=== PATIENT | female | born 1950 ===

== ENCOUNTER 2016-09-23 06:35 | Inpatient (IN) | payer MEDICARE ==
[2016-09-23 06:52] VITALS: BMI 31.5
[2016-09-23] MEDS ORDERED: Absorbable Gelatin Sponge Size 12-7 ONE (07:23)
[2016-09-23] MEDS ORDERED: Bacitracin Ointment 30 GM TUBE ONE (07:23)
[2016-09-23] MEDS ORDERED: Thrombin Topical 5,000 IU Spray Kit ONE (07:23)
[2016-09-23] MEDS ORDERED: Bupivacaine HCl 0.25% PF (30 ml) Inj ONE (07:23)
[2016-09-23] MEDS ORDERED: APROTININ/FIBRINOGEN(TISSEEL) ONE (07:23)
[2016-09-23] MEDS ORDERED: Propofol 10 mg/ml Inj (20 ML) ONE (07:29)
[2016-09-23] MEDS ORDERED: Midazolam 2 MG/2 ML VIAL ONE (07:29)
[2016-09-23] MEDS ORDERED: Rocuronium 10 mg/ml (5 ml) ONE (07:30)
[2016-09-23] MEDS ORDERED: Lidocaine 4% (Laryng-O-Jet) Kit MM ONE (07:30)
--- NOTE | 2016-09-23 07:49 | CP.PCM.CON ---
<Mackenzie Cano - Last Filed: 09/25/16 11:13> History of Present Illness - History of Present Illness History of Present Illness: 66 yo right hand dominant female presents with long standing hx of neckpain radiating to right shoulder,weakness and intermittant paresthesias to right hand with weakness,right leg pain and weakness,drops objects,pt had right L4-5 hemilaminotomy 4 mos ago for lumbar spondylosis with temporary relief with RLE symptoms,gait unsteady at times,no relief with conservative management,outpt imaging showing cervical spondylosis with severe canal stenosis greater at C6-7, referred to neurosurgery for further eval,denies trauma,fall,bowel or bladder incontinance. Review of Systems - Review of Systems Systems not reviewed;Unavailable: Acuity of Condition - Cardiovascular Additional comments: Hx Htn,HLD,stress test 09/10/16 normal,denies WI,angina - Gastrointestinal Additional comments: Hx Gerd - Genitourinary Additional comments: stress incontinance - Musculoskeletal Musculoskeletal: Muscle Weakness, Neck Pain, Radiating Pain into Limb, Tingling - Integumentary Additional comments: healed surgical scars - Neurological Neurological: As Per HPI - Endocrine Additional Comments: Hx Hypothyroidism - Hematologic/Lymphatic Additional comments: daily ASA 81 mg,Ibuprophen prn last used 1 day prior to surgery Past Patient History - Infectious Disease Hx of Infectious Diseases: None - Tetanus Immunizations Tetanus Immunization: Unknown - Past Medical History & Family History Past Medical History?: Yes - Past Social History Smoking Status: Current Some Days Smoker Chewing Tobacco Use: No Cigar Use: No Occupation: Homemaker Alcohol: Occasional Drugs: Denies Home Situation {Lives}: With Family Domestic Violence: Negative - CARDIAC Hx Hypercholesterolemia: Yes Hx Hypertension: Yes - PULMONARY Hx Respiratory Disorders: No - NEUROLOGICAL Hx Neurological Disorder: Yes Hx Dizziness: Yes Hx Vertigo: Yes - HEENT Hx HEENT Problems: No - RENAL Hx Chronic Kidney Disease: No - ENDOCRINE/METABOLIC Hx Endocrine Disorders: Yes Hx Diabetes Mellitus Type 1: Yes Hx Hypothyroidism: Yes - HEMATOLOGICAL/ONCOLOGICAL Hx Blood Disorders: No Hx Anemia: No Hx Blood Transfusions: No - INTEGUMENTARY Hx Dermatological Problems: No - MUSCULOSKELETAL/RHEUMATOLOGICAL Hx Musculoskeletal Disorders: Yes Hx Arthritis: Yes Hx Falls: Yes Other/Comment: NECK PAIN - GASTROINTESTINAL Hx Gastrointestinal Disorders: No Other/Comment: GASTRIC REFLUX - GENITOURINARY/GYNECOLOGICAL Hx Genitourinary Disorders: No - PSYCHIATRIC Hx Emotional Abuse: No Hx Physical Abuse: No - SURGICAL HISTORY Hx Surgeries: Yes Other/Comment: BACK SURGERY-2016;C-SECTIONX3; ORAL SURGERY-LEFT FACE SURGERY - ANESTHESIA Hx Anesthesia: Yes Hx Anesthesia Reactions: Yes (FEELS VERY SICK) Hx Malignant Hyperthermia: No Has any member of the family had a problem w/ anesthesia?: No Meds Allergies/Adverse Reactions: Allergies Allergy/AdvReac Type Severity Reaction Status Date / Time codeine Allergy SWELLING Verified 09/23/16 07:46 morphine Allergy SWELLING Verified 09/23/16 07:46 tramadol Allergy SWELLING Verified 09/23/16 06:53 Physical Exam - Constitutional Appears: Well, Non-toxic, No Acute Distress - Head Exam Head Exam: ATRAUMATIC, NORMAL INSPECTION, NORMOCEPHALIC - Eye Exam Eye Exam: EOMI, Normal appearance, PERRL Pupil Exam: NORMAL ACCOMODATION - ENT Exam ENT Exam: Mucous Membranes Moist - Neck Exam Neck exam: Positive for: Tenderness - Respiratory Exam Respiratory Exam: Clear to Auscultation Bilateral, NORMAL BREATHING PATTERN - Cardiovascular Exam Cardiovascular Exam: REGULAR RHYTHM, +S1, +S2 - GI/Abdominal Exam GI & Abdominal Exam: Normal Bowel Sounds, Soft - Rectal Exam Rectal Exam: Deferred - Extremities Exam Extremities exam: Positive for: normal capillary refill, normal inspection, pedal pulses present - Back Exam Back exam: vertebral tenderness - Neurological Exam Neurological exam: Alert, Oriented x3 Additional comments: ISAACS x 4 antigravity with right bicep/tricep and wrist extensor weakness 4/5, decreased sensation right hand,neg brito's - Psychiatric Exam Psychiatric exam: Normal Affect, Normal Mood - Skin Skin Exam: Dry, Intact Additional comments: healed surgical scar's Results - Vital Signs Recent Vital Signs: Last Vital Signs Temp 98.8 F 09/23/16 07:39 Pulse 68 09/23/16 07:39 Resp 18 09/23/16 07:39 BP 135/82 09/23/16 07:39 Pulse Ox 97 09/23/16 07:39 - Labs Result Diagrams: 09/25/16 08:00 09/25/16 08:00 Labs: Laboratory Results - last 24 hr 09/23/16 09/23/16 07:00 07:15 POC Glucose (mg/dL) 109 BBK History Checked No verified bt Assessment & Plan - Assessment and Plan (Free Text) Assessment: 66 yo right hand dominant female with Cervical spondylosis and myelopathy C6-7 Plan: here today for proposed cervical decompression C6-7,risks and benefits of surgery d/w pt and family expressed understanding and wishes to proceed. <Rohith Guadarrama P - Last Filed: 09/25/16 12:05> Meds - Medications Medications: Current Medications Acetaminophen (Tylenol 325mg Tab) 650 mg PO Q6 PRN PRN Reason: Pain, moderate (4-7) Last Admin: 09/24/16 22:13 Dose: 650 mg Amlodipine Besylate (Norvasc) 5 mg PO DAILY [facility] Last Admin: 09/25/16 09:03 Dose: 5 mg Aspirin (Aspirin Chewable) 81 mg PO DAILY [facility] Last Admin: 09/25/16 08:50 Dose: 81 mg Cyclobenzaprine HCl (Flexeril) 5 mg PO TID PRN PRN Reason: Muscle spasm Last Admin: 09/25/16 09:03 Dose: 5 mg Diphenhydramine HCl (Benadryl) 50 mg IVP Q6 PRN PRN Reason: Rash Enalapril Maleate (Vasotec) 20 mg PO DAILY [facility] Last Admin: 09/25/16 08:49 Dose: 20 mg Enoxaparin Sodium (Lovenox) 40 mg SC DAILY [facility] PRN Reason: Protocol Last Admin: 09/25/16 08:49 Dose: 40 mg Furosemide (Lasix) 20 mg PO DAILY [facility] Last Admin: 09/25/16 09:02 Dose: 20 mg Levothyroxine Sodium (Synthroid) 25 mcg PO DAILY@0630 [facility] Last Admin: 09/25/16 06:53 Dose: 25 mcg Metformin HCl (Glucophage) 750 mg PO BRK [facility] Last Admin: 09/25/16 09:07 Dose: 750 mg Oxycodone/Acetaminophen (Percocet 5/325 Mg Tab) 2 tab PO Q4 PRN PRN Reason: Pain, moderate (4-7) Stop: 09/26/16 11:01 Pantoprazole Sodium (Protonix Ec Tab) 40 mg PO DAILY [facility] Last Admin: 09/25/16 09:02 Dose: 40 mg Results - Vital Signs Recent Vital Signs: Last Vital Signs Temp 98.4 F 09/25/16 08:18 Pulse 75 09/25/16 09:03 Resp 20 09/25/16 08:18 BP 107/70 09/25/16 09:03 Pulse Ox 100 09/25/16 08:18 - Labs Result Diagrams: 09/25/16 08:00 09/25/16 08:00 Labs: Laboratory Results - last 24 hr 09/25/16 09/25/16 09/25/16 05:52 08:00 08:00 WBC 12.5 H RBC 4.24 Hgb 12.1 Hct 37.4 MCV 88.1 MCH 28.6 MCHC 32.4 L RDW 13.9 Plt Count 264 Sodium 140 Potassium 3.7 Chloride 103 Carbon Dioxide 27 Anion Gap 14 BUN 11 Creatinine 0.7 Est GFR ( Amer) > 60 Est GFR (Non-Af Amer) > 60 POC Glucose (mg/dL) 95 Random Glucose 101 Calcium 8.7 09/25/16 10:59 WBC RBC Hgb Hct MCV MCH MCHC RDW Plt Count Sodium Potassium Chloride Carbon Dioxide Anion Gap BUN Creatinine Est GFR ( Amer) Est GFR (Non-Af Amer) POC Glucose (mg/dL) 112 H Random Glucose Calcium Assessment & Plan - Assessment and Plan (Free Text) Plan: addendum C5-C7 Posterior Cervical/ Decompression and Posterolateral Non Instrumented Fusion
[2016-09-23] MEDS ORDERED: Lactated Ringer's 1,000 ML IV ONE ×2 (08:40→08:55)
[2016-09-23] MEDS ORDERED: Sodium Chloride 0.9% 100 ML IV ONE (08:50)
[2016-09-23] MEDS ORDERED: Lidocaine 1% w Epi 1:100,000 Inj INJ ONE (09:10)
[2016-09-23] MEDS ORDERED: HEMOSTATIC MATRIX 10 ML DIS.NEEDLE TOP ONE (09:25)
[2016-09-23] MEDS ORDERED: Neostigmine Methylsulfate 3mg/3ml Syringe IV ONE (09:38)
[2016-09-23] MEDS ORDERED: Dexamethasone 4 mg/1 ml IVP PRN (10:13)
[2016-09-23] MEDS ORDERED: HYDROmorphone 0.5 mg/0.5 ml ISec IVP PRN (10:13)
[2016-09-23] MEDS ORDERED: Oxycodone/Acetaminophen 5/325 mg Tab PO PRN (11:00)
[2016-09-23] MEDS ORDERED: DiphenhydrAMINE 50 mg/ml Inj IVP PRN (11:04)
[2016-09-23] MEDS: Lactated Ringer's 1,000 ML IV SCH (12:55)
--- NOTE | 2016-09-23 14:42 | CP.PCM.HP ---
<Xin Castillo - Last Filed: 09/23/16 18:39> History of Present Illness - History of Present Illness History of Present Illness: 66 y/o F with PMHx that includes HTN, Hypothyroidism, Cervical spondylosis and myelopathy admitted for Cervical laminectomy C6-C7 by Dr. Guadarrama. Patient was seen and examined with attending Present on Admission - Present on Admission Any Indicators Present on Admission: No History of DVT/PE: No History of Uncontrolled Diabetes: No Urinary Catheter: No Decubitus Ulcer Present: No Review of Systems - Review of Systems All systems: reviewed and no additional remarkable complaints except (as per HPI ) Past Patient History - Infectious Disease Hx of Infectious Diseases: None - Past Medical History & Family History Past Medical History?: Yes - Past Social History Smoking Status: Current Some Days Smoker - CARDIAC Hx Hypercholesterolemia: Yes Hx Hypertension: Yes - PULMONARY Hx Respiratory Disorders: No - NEUROLOGICAL Hx Neurological Disorder: Yes Hx Dizziness: Yes Hx Vertigo: Yes - HEENT Hx HEENT Problems: No - RENAL Hx Chronic Kidney Disease: No - ENDOCRINE/METABOLIC Hx Endocrine Disorders: Yes Hx Diabetes Mellitus Type 1: Yes Hx Hypothyroidism: Yes - HEMATOLOGICAL/ONCOLOGICAL Hx Blood Disorders: No Hx Anemia: No Hx Blood Transfusions: No - INTEGUMENTARY Hx Dermatological Problems: No - MUSCULOSKELETAL/RHEUMATOLOGICAL Hx Musculoskeletal Disorders: Yes Hx Arthritis: Yes Hx Falls: Yes Other/Comment: NECK PAIN - GASTROINTESTINAL Hx Gastrointestinal Disorders: No Other/Comment: GASTRIC REFLUX - GENITOURINARY/GYNECOLOGICAL Hx Genitourinary Disorders: No - PSYCHIATRIC Hx Emotional Abuse: No Hx Physical Abuse: No - SURGICAL HISTORY Hx Surgeries: Yes Other/Comment: BACK SURGERY-2016;C-SECTIONX3; ORAL SURGERY-LEFT FACE SURGERY - ANESTHESIA Hx Anesthesia: Yes Hx Anesthesia Reactions: Yes (FEELS VERY SICK) Hx Malignant Hyperthermia: No Has any member of the family had a problem w/ anesthesia?: No Meds Allergies/Adverse Reactions: Allergies Allergy/AdvReac Type Severity Reaction Status Date / Time codeine Allergy SWELLING Verified 09/23/16 07:46 morphine Allergy SWELLING Verified 09/23/16 07:46 tramadol Allergy SWELLING Verified 09/23/16 06:53 Physical Exam - Constitutional Appears: No Acute Distress - ENT Exam ENT Exam: Mucous Membranes Moist - Respiratory Exam Respiratory Exam: Clear to Auscultation Bilateral, NORMAL BREATHING PATTERN - Cardiovascular Exam Cardiovascular Exam: REGULAR RHYTHM, +S1, +S2 - GI/Abdominal Exam GI & Abdominal Exam: Normal Bowel Sounds, Soft. absent: Distended, Guarding, Rigid, Tenderness - Extremities Exam Extremities exam: Positive for: normal inspection. Negative for: calf tenderness, pedal edema - Neurological Exam Neurological exam: Alert, Oriented x3 - Skin Skin Exam: Dry, Intact, Normal Color Results - Vital Signs Recent Vital Signs: Last Vital Signs Temp 98.7 F 09/23/16 13:06 Pulse 84 09/23/16 14:18 Resp 18 09/23/16 13:06 BP 104/66 09/23/16 13:06 Pulse Ox 97 09/23/16 13:06 - Labs Labs: Laboratory Results - last 24 hr 09/23/16 09/23/16 09/23/16 07:00 07:15 07:37 POC Glucose (mg/dL) 109 Blood Type O POSITIVE Blood Type Confirm O POSITIVE Antibody Screen Negative BBK History Checked No verified bt 09/23/16 09/23/16 10:29 13:08 POC Glucose (mg/dL) 140 H 115 H Blood Type Blood Type Confirm Antibody Screen BBK History Checked Assessment & Plan - Assessment and Plan (Free Text) Assessment: 66 y/o F with PMHx of Cervical spondylosis and myelopathy, s/p Cervical Laminectomy C6-C7 on POD#0 Plan: S/P Cervical Laminectomy C6-C7 on POD#0 -admit to Telemetry -c/w pain control -f/u CBC, BMP in AM -PT eval -F/U Dr. Guadarrama recommendation HTN -re-assume home meds -c/w BP monitoring Hypothyroidism -re-assume Levothyroxine DVT prophylaxis SCDs for now consider Lovenox SC tomorrow - Date & Time Date: 09/23/16 Time: 12:15 <Rahat Randhawa L - Last Filed: 09/27/16 10:54> Results - Vital Signs Recent Vital Signs: Last Vital Signs Temp 98.3 F 09/27/16 07:28 Pulse 76 09/27/16 07:28 Resp 20 09/27/16 07:28 BP 94/60 L 09/27/16 09:34 Pulse Ox 96 09/27/16 07:28 - Labs Result Diagrams: 09/26/16 06:30 09/25/16 08:00 Labs: Laboratory Results - last 24 hr 09/26/16 09/26/16 09/26/16 10:40 15:54 21:51 POC Glucose (mg/dL) 151 H 98 93 09/27/16 05:58 POC Glucose (mg/dL) 97 Assessment & Plan (1) S/P cervical discectomy Status: Acute (2) Cervical radiculopathy Status: Acute (3) Hypertension Status: Acute - Assessment and Plan (Free Text) Plan: I was present during evaluation and discussed with Dr Castillo re plans of care Rahat Randhawa M.D.
--- NOTE | 2016-09-23 17:22 | RAD ---
PROCEDURE: Intraoperative Fluoroscopy. HISTORY: CERVICAL LAMINECTOMY FINDINGS: Fluoroscopic assistance was provided for cervical laminectomy. Total fluoroscopic time (continuous mode) utilized during the procedure: 7.6 seconds. Please refer to the operative report from
[2016-09-24] MEDS: Lactated Ringer's 1,000 ML IV SCH (01:11)
--- NOTE | 2016-09-24 01:36 | OP ---
PROCEDURE DATE: 09/23/2016 PREOPERATIVE DIAGNOSIS: Cervical spondylosis with myelopathy. POSTOPERATIVE DIAGNOSIS: Cervical spondylosis with myelopathy. PROCEDURE: C5-C7 cervical laminectomy, C5-C7 posterolateral fusion. treatment plant mechanic has been used. Fluoroscopy has been used. Microscope has been used. SURGEON: Dr. Guadarrama. [employer] SUPERVISOR: Mackenzie Cano PA-C. Mackenzie Cano is a physician supply assistant who helped me perform the surgery. DESCRIPTION OF PROCEDURE: The patient was brought to the operating room, intubated general endotracheal anesthesia. Head was placed in the 3-pin Randall janitor head and she was placed in a prone position on a Dominguez frame. treatment plant mechanic had been clamped to the bed. Back of the cervical area was thoroughly prepped and draped in same sterile manner. After markings for skin incisions for cervical laminectomy. After prepping and draping the area, skin had been incised. Bleeding skins had been controlled with bipolar operations research scientist. After using the Bovie operations research scientist, the paraspinal muscles had been detached, attachments of spinous process, lamina of C5-C7. Deep retractors had been applied. Identification of the levels had been done with the help of fluoroscopy. Under microscopic examination, the spinous process of C5, C6, C7 had been removed. By using a high speed drill, the lamina had been drilled to actual thickness. By using a fine Kerrison punch, lamina, medial part of the facets and ligamentum flavum had been removed. Decompression had been achieved. Lateral aspect of the facet joint, transverse process had been decorticated, demineralized bone placed in the area achieving a posterolateral fusion at C5-C7. After that, hemostasis was best achieved. Jt drain was placed on the wound and brought out through a separate stab neck skin incision. Muscles and fascia were closed with 1 Vicryl, subcutaneous with 3 Vicryl. Skin had been closed with intradermal 3 Vicryl stitches. The patient tolerated the procedure and after procedure mobilized to the recovery room in stabilized condition. Rohith Guadarrama MD
[2016-09-24] MEDS: Levothyroxine 25 MCG TAB PO SCH (06:25)
[2016-09-24 07:28] LABS: BLOOD UREA NITROGEN 11 mg/dl (7-17); CALCIUM 8.7 mg/dL (8.4-10.2); CARBON DIOXIDE 24 mmol/L (22-30); CHLORIDE 106 mmol/L (98-107); GFR AFRICAN-AMERICAN > 60; GLUCOSE,RANDOM 112 mg/dL (65-105); POTASSIUM 4.1 MMOL/L (3.6-5.0); SODIUM 137 mmol/l (132-148)
[2016-09-24 07:29] LABS: BASO # 0.1 K/uL (0.0-0.2); BASO % 0.4 % (0.0-2.0); EOS # 0.1 K/uL (0.0-0.7); EOS % 0.6 % (0.0-4.0); HEMATOCRIT 36.7 % (34.0-47.0); LYMPH # 2.4 K/uL (1.0-4.3); MEAN CORPUSCULAR HEMOGLOBIN 28.5 pg (27.0-31.0); MEAN PLATELET VOLUME 8.4 fl (7.2-11.7); MONO % 7.7 % (0.0-10.0); NEUT # 9.2 K/uL (1.8-7.0); NEUT % 72.3 % (50.0-75.0); RED CELL DISTRIBUTION WIDTH 13.9 % (11.5-14.5); WHITE BLOOD COUNT 12.7 K/uL (4.8-10.8)
[2016-09-24] MEDS: Enoxaparin 40 mg Syringe SC SCH (09:11)
[2016-09-24] MEDS: Pantoprazole 40 mg EC Tab PO SCH (09:13)
--- NOTE | 2016-09-24 15:43 | CP.PCM.PN ---
<Xin Castillo - Last Filed: 09/24/16 15:39> Subjective - Date & Time of Evaluation Date of Evaluation: 09/24/16 Time of Evaluation: 09:10 - Subjective Subjective: patient seen and examined with attending pt still reporting pain, but controlled with pain medications Denies Cp, SOB, N/V, abdominal pain, or urinary symptoms passing gas, but has not yet had a BM Objective - Vital Signs/Intake and Output Vital Signs (last 24 hours): Temp Pulse Resp BP Pulse Ox 98.8 F 76 20 111/70 98 09/24/16 13:58 09/24/16 13:58 09/24/16 13:58 09/24/16 13:58 09/24/16 13:58 Intake and Output: 09/24/16 09/24/16 06:59 18:59 Intake Total 1750 Output Total 1270 Balance 480 - Medications Medications: Current Medications Acetaminophen (Tylenol 325mg Tab) 650 mg PO Q6 PRN PRN Reason: Pain, moderate (4-7) Last Admin: 09/24/16 15:00 Dose: 650 mg Amlodipine Besylate (Norvasc) 5 mg PO DAILY [facility] Last Admin: 09/24/16 09:12 Dose: 5 mg Aspirin (Aspirin Chewable) 81 mg PO DAILY [facility] Last Admin: 09/24/16 09:12 Dose: 81 mg Cyclobenzaprine HCl (Flexeril) 5 mg PO TID PRN PRN Reason: Muscle spasm Diphenhydramine HCl (Benadryl) 50 mg IVP Q6 PRN PRN Reason: Rash Enalapril Maleate (Vasotec) 20 mg PO DAILY [facility] Last Admin: 09/24/16 09:12 Dose: 20 mg Enoxaparin Sodium (Lovenox) 40 mg SC DAILY [facility] PRN Reason: Protocol Last Admin: 09/24/16 09:11 Dose: 40 mg Furosemide (Lasix) 20 mg PO DAILY [facility] Last Admin: 09/24/16 09:12 Dose: 20 mg Levothyroxine Sodium (Synthroid) 25 mcg PO DAILY@0630 [facility] Last Admin: 09/24/16 06:25 Dose: 25 mcg Metformin HCl (Glucophage) 750 mg PO BRK [facility] Last Admin: 09/24/16 09:11 Dose: 750 mg Oxycodone/Acetaminophen (Percocet 5/325 Mg Tab) 2 tab PO Q4 PRN PRN Reason: Pain, moderate (4-7) Stop: 09/26/16 11:01 Pantoprazole Sodium (Protonix Ec Tab) 40 mg PO DAILY [facility] Last Admin: 09/24/16 09:13 Dose: 40 mg - Labs Labs: 09/24/16 07:03 09/24/16 07:03 - Additional Findings Additional findings: Constitutional Appears: No Acute Distress - ENT Exam ENT Exam: Mucous Membranes Moist - Respiratory Exam Respiratory Exam: Clear to Auscultation Bilateral, NORMAL BREATHING PATTERN - Cardiovascular Exam Cardiovascular Exam: REGULAR RHYTHM, +S1, +S2 - GI/Abdominal Exam GI & Abdominal Exam: Normal Bowel Sounds, Soft. absent: Distended, Guarding, Rigid, Tenderness - Extremities Exam Extremities exam: Positive for: normal inspection, right calf tenderness, no left calf tenderness . Negative for: pedal edema - Neurological Exam Neurological exam: Alert, Oriented x3 - Skin Skin Exam: Dry, Intact, Normal Color Assessment and Plan - Assessment and Plan (Free Text) Assessment: 66 y/o F with PMHx of Cervical spondylosis and myelopathy, s/p Cervical Laminectomy C6-C7 on POD#1 Plan: S/P Cervical Laminectomy C6-C7 on POD#1 -transfer to [facility] -Afebrile -CBC showed mild leucocytosis, could be 2/2 postt-operative inflamm reaction -c/w pain control -f/u VS -f/u dupplex venous US of LE -PT eval /Tx -F/U Dr. Guadarrama recommendation HTN -re-assume home meds -c/w BP monitoring Hypothyroidism -re-assume Levothyroxine DVT prophylaxis SCDs start Lovenox SC today <Rahat Randhawa - Last Filed: 09/27/16 10:55> Objective - Vital Signs/Intake and Output Vital Signs (last 24 hours): Temp Pulse Resp BP Pulse Ox 98.3 F 76 20 94/60 L 96 09/27/16 07:28 09/27/16 07:28 09/27/16 07:28 09/27/16 09:34 09/27/16 07:28 - Medications Medications: Current Medications Acetaminophen (Tylenol 325mg Tab) 650 mg PO Q6 PRN PRN Reason: Pain, moderate (4-7) Last Admin: 09/24/16 22:13 Dose: 650 mg Amlodipine Besylate (Norvasc) 5 mg PO DAILY [facility] Last Admin: 09/26/16 09:00 Dose: 5 mg Aspirin (Aspirin Chewable) 81 mg PO DAILY [facility] Last Admin: 09/27/16 09:32 Dose: 81 mg Cyclobenzaprine HCl (Flexeril) 5 mg PO TID PRN PRN Reason: Muscle spasm Last Admin: 09/27/16 09:34 Dose: 5 mg Diphenhydramine HCl (Benadryl) 50 mg IVP Q6 PRN PRN Reason: Rash Enalapril Maleate (Vasotec) 20 mg PO DAILY [facility] Last Admin: 09/26/16 08:40 Dose: Not Given Enoxaparin Sodium (Lovenox) 40 mg SC DAILY [facility] PRN Reason: Protocol Last Admin: 09/27/16 09:36 Dose: 40 mg Furosemide (Lasix) 20 mg PO DAILY [facility] Last Admin: 09/27/16 09:34 Dose: 20 mg Lactulose (Enulose) 20 gm PO DAILY PRN PRN Reason: Constipation Last Admin: 09/27/16 09:39 Dose: 20 gm Levothyroxine Sodium (Synthroid) 25 mcg PO DAILY@0630 [facility] Last Admin: 09/27/16 07:46 Dose: 25 mcg Metformin HCl (Glucophage) 750 mg PO BRK [facility] Last Admin: 09/27/16 09:34 Dose: 750 mg Pantoprazole Sodium (Protonix Ec Tab) 40 mg PO DAILY [facility] Last Admin: 09/27/16 09:36 Dose: 40 mg - Labs Labs: 09/26/16 06:30 09/25/16 08:00 Assessment and Plan (1) S/P cervical discectomy Status: Acute (2) Cervical radiculopathy Status: Acute (3) Hypertension Status: Acute - Assessment and Plan (Free Text) Plan: I was present during evaluation and discussed with Dr Castillo re plans of care and treatment. Rahat Randhawa M.D.
--- NOTE | 2016-09-24 18:57 | US ---
PROCEDURE: AllBilateral lower extremity venous duplex Doppler. HISTORY: r/o DVT, s/p surgery COMPARISON: None available. TECHNIQUE: Bilateral common femoral, superficial femoral, popliteal and posterior tibial veins were evaluated. Flow was assessed with color Doppler, compressibility, assessment of phasic flow and augmentation response. FINDINGS: COMMON FEMORAL VEIN: Right CFV: Unremarkable. Left CFV: Unremarkable. SUPERFICIAL FEMORAL VEIN: Right SFV: Unremarkable. Left SFV: Unremarkable. POPLITEAL VEIN: Right Popliteal: Unremarkable. Left Popliteal: Unremarkable. POSTERIOR TIBIAL VEIN: Right PTV: Unremarkable. Left PTV: Unremarkable. OTHER FINDINGS: None. IMPRESSION: No evidence of deep venous thrombosis.
[2016-09-25] MEDS: Levothyroxine 25 MCG TAB PO SCH (06:53)
[2016-09-25 08:45] LABS: HEMATOCRIT 37.4 % (34.0-47.0); MEAN CELL VOLUME 88.1 fl (81.0-99.0); MEAN CORPUSCULAR HEMOGLOBIN 28.6 pg (27.0-31.0); MEAN CORPUSCULAR HGB CONC 32.4 g/dL (33.0-37.0); RED CELL DISTRIBUTION WIDTH 13.9 % (11.5-14.5); WHITE BLOOD COUNT 12.5 K/uL (4.8-10.8)
[2016-09-25] MEDS: Enoxaparin 40 mg Syringe SC SCH (08:49)
[2016-09-25] MEDS: Pantoprazole 40 mg EC Tab PO SCH (09:02)
[2016-09-25 09:06] LABS: BLOOD UREA NITROGEN 11 mg/dl (7-17); CALCIUM 8.7 mg/dL (8.4-10.2); CARBON DIOXIDE 27 mmol/L (22-30); CHLORIDE 103 mmol/L (98-107); GFR AFRICAN-AMERICAN > 60; GLUCOSE,RANDOM 101 mg/dL (65-105); POTASSIUM 3.7 MMOL/L (3.6-5.0); SODIUM 140 mmol/l (132-148)
--- NOTE | 2016-09-25 10:44 | CP.PCM.PN ---
Subjective - Date & Time of Evaluation Date of Evaluation: 09/25/16 Time of Evaluation: 10:44 - Subjective Subjective: Patient feels a lot better today Has no chest pain or SOB. Drain was taken out, Has some pain in the periop site Has no fever. Objective - Vital Signs/Intake and Output Vital Signs (last 24 hours): Temp Pulse Resp BP Pulse Ox 98.4 F 75 20 107/70 100 09/25/16 08:18 09/25/16 09:03 09/25/16 08:18 09/25/16 09:03 09/25/16 08:18 Intake and Output: 09/25/16 09/25/16 06:59 18:59 Output Total 10 Balance -10 - Medications Medications: Current Medications Acetaminophen (Tylenol 325mg Tab) 650 mg PO Q6 PRN PRN Reason: Pain, moderate (4-7) Last Admin: 09/24/16 22:13 Dose: 650 mg Amlodipine Besylate (Norvasc) 5 mg PO DAILY [facility] Last Admin: 09/25/16 09:03 Dose: 5 mg Aspirin (Aspirin Chewable) 81 mg PO DAILY [facility] Last Admin: 09/25/16 08:50 Dose: 81 mg Cyclobenzaprine HCl (Flexeril) 5 mg PO TID PRN PRN Reason: Muscle spasm Last Admin: 09/25/16 09:03 Dose: 5 mg Diphenhydramine HCl (Benadryl) 50 mg IVP Q6 PRN PRN Reason: Rash Enalapril Maleate (Vasotec) 20 mg PO DAILY [facility] Last Admin: 09/25/16 08:49 Dose: 20 mg Enoxaparin Sodium (Lovenox) 40 mg SC DAILY [facility] PRN Reason: Protocol Last Admin: 09/25/16 08:49 Dose: 40 mg Furosemide (Lasix) 20 mg PO DAILY [facility] Last Admin: 09/25/16 09:02 Dose: 20 mg Levothyroxine Sodium (Synthroid) 25 mcg PO DAILY@0630 [facility] Last Admin: 09/25/16 06:53 Dose: 25 mcg Metformin HCl (Glucophage) 750 mg PO BRK [facility] Last Admin: 09/25/16 09:07 Dose: 750 mg Oxycodone/Acetaminophen (Percocet 5/325 Mg Tab) 2 tab PO Q4 PRN PRN Reason: Pain, moderate (4-7) Stop: 09/26/16 11:01 Pantoprazole Sodium (Protonix Ec Tab) 40 mg PO DAILY [facility] Last Admin: 09/25/16 09:02 Dose: 40 mg - Labs Labs: 09/25/16 08:00 09/25/16 08:00 - Head Exam Head Exam: NORMAL INSPECTION - Eye Exam Eye Exam: Normal appearance - ENT Exam ENT Exam: Mucous Membranes Moist - Respiratory Exam Respiratory Exam: Clear to Ausculation Bilateral - Cardiovascular Exam Cardiovascular Exam: REGULAR RHYTHM - GI/Abdominal Exam GI & Abdominal Exam: Normal Bowel Sounds - Neurological Exam Neurological Exam: Awake, Oriented x3 Assessment and Plan (1) Cervical radiculopathy Status: Acute (2) Hypertension Status: Acute (3) S/P cervical discectomy Status: Acute (4) Diabetes mellitus type 2 in nonobese Status: Acute - Assessment and Plan (Free Text) Plan: cont meds Cont tx cont PT pain meds
[2016-09-26] MEDS: Levothyroxine 25 MCG TAB PO SCH (08:04)
[2016-09-26 08:39] LABS: MEAN CELL VOLUME 88.2 fl (81.0-99.0); MEAN CORPUSCULAR HEMOGLOBIN 28.8 pg (27.0-31.0); MEAN CORPUSCULAR HGB CONC 32.7 g/dL (33.0-37.0); RED CELL DISTRIBUTION WIDTH 13.2 % (11.5-14.5)
[2016-09-26] MEDS: Enoxaparin 40 mg Syringe SC SCH (08:39)
[2016-09-26] MEDS: Pantoprazole 40 mg EC Tab PO SCH (08:39)
[2016-09-27 00:15] VITALS: O2SAT 96
[2016-09-27 07:28] VITALS: RESP 20; TEMP 98.3
[2016-09-27] MEDS: Levothyroxine 25 MCG TAB PO SCH (07:46)
[2016-09-27] MEDS: Pantoprazole 40 mg EC Tab PO SCH (09:36)
[2016-09-27] MEDS: Enoxaparin 40 mg Syringe SC SCH (09:36)
--- NOTE | 2016-09-27 10:50 | CP.PCM.PN ---
Subjective - Date & Time of Evaluation Date of Evaluation: 09/26/16 Time of Evaluation: 09:30 - Subjective Subjective: patient is doing better although still has a lot of pain. Has no chest pain or SOB Has some constipation Objective - Vital Signs/Intake and Output Vital Signs (last 24 hours): Temp Pulse Resp BP Pulse Ox 98.3 F 76 20 94/60 L 96 09/27/16 07:28 09/27/16 07:28 09/27/16 07:28 09/27/16 09:34 09/27/16 07:28 - Medications Medications: Current Medications Acetaminophen (Tylenol 325mg Tab) 650 mg PO Q6 PRN PRN Reason: Pain, moderate (4-7) Last Admin: 09/24/16 22:13 Dose: 650 mg Amlodipine Besylate (Norvasc) 5 mg PO DAILY [facility] Last Admin: 09/26/16 09:00 Dose: 5 mg Aspirin (Aspirin Chewable) 81 mg PO DAILY [facility] Last Admin: 09/27/16 09:32 Dose: 81 mg Cyclobenzaprine HCl (Flexeril) 5 mg PO TID PRN PRN Reason: Muscle spasm Last Admin: 09/27/16 09:34 Dose: 5 mg Diphenhydramine HCl (Benadryl) 50 mg IVP Q6 PRN PRN Reason: Rash Enalapril Maleate (Vasotec) 20 mg PO DAILY [facility] Last Admin: 09/26/16 08:40 Dose: Not Given Enoxaparin Sodium (Lovenox) 40 mg SC DAILY [facility] PRN Reason: Protocol Last Admin: 09/27/16 09:36 Dose: 40 mg Furosemide (Lasix) 20 mg PO DAILY [facility] Last Admin: 09/27/16 09:34 Dose: 20 mg Lactulose (Enulose) 20 gm PO DAILY PRN PRN Reason: Constipation Last Admin: 09/27/16 09:39 Dose: 20 gm Levothyroxine Sodium (Synthroid) 25 mcg PO DAILY@0630 [facility] Last Admin: 09/27/16 07:46 Dose: 25 mcg Metformin HCl (Glucophage) 750 mg PO BRK [facility] Last Admin: 09/27/16 09:34 Dose: 750 mg Pantoprazole Sodium (Protonix Ec Tab) 40 mg PO DAILY [facility] Last Admin: 09/27/16 09:36 Dose: 40 mg - Labs Labs: 09/26/16 06:30 09/25/16 08:00 - Head Exam Head Exam: NORMAL INSPECTION - Eye Exam Eye Exam: Normal appearance - Respiratory Exam Respiratory Exam: Clear to Ausculation Bilateral - Cardiovascular Exam Cardiovascular Exam: REGULAR RHYTHM - GI/Abdominal Exam GI & Abdominal Exam: Normal Bowel Sounds - Neurological Exam Neurological Exam: Awake, Oriented x3 Assessment and Plan (1) S/P cervical discectomy Status: Acute (2) Cervical radiculopathy Status: Acute (3) Hypertension Status: Acute - Assessment and Plan (Free Text) Plan: cont meds Cont tx Cont PT pain meds.
--- NOTE | 2016-09-27 10:59 | CP.PCM.DIS ---
Provider - Provider Date of Admission: 09/23/16 10:55 Attending physician: Rahat Randhawa MD Primary care physician: Rahat Randhawa MD Time Spent in preparation of Discharge (in minutes): 30 Diagnosis - Discharge Diagnosis (1) Cervical radiculopathy Status: Acute (2) Hypertension Status: Acute (3) S/P cervical discectomy Status: Acute (4) Diabetes mellitus type 2 in nonobese Status: Acute Hospital Course - Lab Results Lab Results: Most Recent Lab Values WBC 13.0 K/uL (4.8-10.8) H 09/26/16 06:30 RBC 3.97 Mil/uL (3.80-5.20) 09/26/16 06:30 Hgb 11.5 g/dL (12.0-16.0) L 09/26/16 06:30 Hct 35.0 % (34.0-47.0) 09/26/16 06:30 MCV 88.2 fl (81.0-99.0) 09/26/16 06:30 MCH 28.8 pg (27.0-31.0) 09/26/16 06:30 MCHC 32.7 g/dL (33.0-37.0) L 09/26/16 06:30 RDW 13.2 % (11.5-14.5) 09/26/16 06:30 Plt Count 260 K/uL (130-400) 09/26/16 06:30 MPV 8.4 fl (7.2-11.7) 09/24/16 07:03 Neut % (Auto) 72.3 % (50.0-75.0) 09/24/16 07:03 Lymph % (Auto) 19.0 % (20.0-40.0) L 09/24/16 07:03 [place] % (Auto) 7.7 % (0.0-10.0) 09/24/16 07:03 Eos % (Auto) 0.6 % (0.0-4.0) 09/24/16 07:03 Baso % (Auto) 0.4 % (0.0-2.0) 09/24/16 07:03 Neut # 9.2 K/uL (1.8-7.0) H 09/24/16 07:03 Lymph # 2.4 K/uL (1.0-4.3) 09/24/16 07:03 [place] # 1.0 K/uL (0.0-0.8) H 09/24/16 07:03 Eos # 0.1 K/uL (0.0-0.7) 09/24/16 07:03 Baso # 0.1 K/uL (0.0-0.2) 09/24/16 07:03 Sodium 140 mmol/l (132-148) 09/25/16 08:00 Potassium 3.7 MMOL/L (3.6-5.0) 09/25/16 08:00 Chloride 103 mmol/L (98-107) 09/25/16 08:00 Carbon Dioxide 27 mmol/L (22-30) 09/25/16 08:00 Anion Gap 14 (10-20) 09/25/16 08:00 BUN 11 mg/dl (7-17) 09/25/16 08:00 Creatinine 0.7 mg/dL (0.7-1.2) 09/25/16 08:00 Est GFR ( Amer) > 60 09/25/16 08:00 Est GFR (Non-Af Amer) > 60 09/25/16 08:00 POC Glucose (mg/dL) 78 mg/dL (65-110) 09/27/16 10:40 Random Glucose 101 mg/dL (65-105) 09/25/16 08:00 Calcium 8.7 mg/dL (8.4-10.2) 09/25/16 08:00 Blood Type O POSITIVE 09/23/16 07:00 Blood Type Confirm O POSITIVE 09/23/16 07:37 Antibody Screen Negative 09/23/16 07:00 BBK History Checked No verified bt 09/23/16 07:00 - Hospital Course Hospital Course: This is a 66 y/o female wjho had progressive cervical radiculopathy and C6C7 spondylosis was admitttedfor C6C7 decompression. Post op period was unremarkable. Post op period ws unremarkabl She was started on pain meds and stool softener and meds for HTN and DM 2 were maintaine She did very well and discharged to home and discharged to home in stable conditon. Discharge Exam - Head Exam Head Exam: NORMAL INSPECTION - Eye Exam Eye Exam: Normal appearance - Respiratory Exam Respiratory Exam: NORMAL BREATHING PATTERN - Cardiovascular Exam Cardiovascular Exam: REGULAR RHYTHM - GI/Abdominal Exam GI & Abdominal Exam: Normal Bowel Sounds - Neurological Exam Neurological exam: CN II-XII Intact, Oriented x3 - Psychiatric Exam Psychiatric exam: Normal Mood Discharge Plan - Follow Up Plan Condition: GOOD Disposition: HOME/ ROUTINE Additional Instructions: discharge to home pain meds follow up in 1 to 2 weeks Referrals: Rahat Randhawa MD [Primary Care Provider] -
[2016-09-27 12:36] VITALS: BP 114/77; PULSE 84
== END 2016-09-27 14:07 | disposition home or self-care (01) | DRG 473 ==
LOC: H.OPSURG 06:35 → H.TEL 10:55 → H.MEDSURG1 09-24 15:53
PROVIDERS: ADMIT Family Medicine; ATTEND Family Medicine
PROC: 0RG20K1 Fusion of 2 or more Cervical Vertebral Joints with Nonautologous Tissue Substitute, Posterior Approach, Posterior Column, Open Approach (ICD-10-PCS; principal; 2016-09-23 07:45)
DX: M47.12 Other spondylosis with myelopathy, cervical region (principal); I10 Essential (primary) hypertension; E03.9 Hypothyroidism, unspecified; E11.9 Type 2 diabetes mellitus without complications; E78.5 Hyperlipidemia, unspecified; K21.9 Gastro-esophageal reflux disease without esophagitis; K59.00 Constipation, unspecified; M54.12 Radiculopathy, cervical region; N39.3 Stress incontinence (female) (male); Z88.6 Allergy status to analgesic agent; Z88.5 Allergy status to narcotic agent; F17.200 Nicotine dependence, unspecified, uncomplicated

== ENCOUNTER 2016-10-10 21:57 | Inpatient (IN) | payer MEDICARE ==
[2016-10-10 21:57] VITALS: BMI 31.5
--- NOTE | 2016-10-10 22:27 | ED PDOC ---
HPI: Headache Time Seen by Provider: 10/10/16 22:00 Chief Complaint (Nursing): Headache Chief Complaint (Provider): Headache History Per: Patient History/Exam Limitations: no limitations Onset/Duration Of Symptoms: Intermittent Episodes, Other (x1 week) Current Symptoms Are (Timing): Still Present Additional Complaint(s): 66 year old female brought in by EMS and accompanied by daughter presents to ED with complaints of a headache and has a past medical history of HTN, arthritis, and DM. Daughter states that patient has been having intermittent headaches x1 week and experienced one x2.5 hours [employer] FIL[employer] while walking, causing her to lose balance. Daughter notes that patient lost consciousness x1 minute and was very slow to respond to promptings, causing her to call 911. Of note, patient had a laminectomy x2.5 weeks earlier and had been recuperating well but just started physical therapy. Daughter states patient had been taking Duexis for pain. PCP: Dr. Randhawa NIHSS Stroke Scale - Date/Time Evaluation Performed Date Performed: 10/10/16 Time Performed: 10:30 When Was NIHSS Performed: Baseline - How Severe is the Stroke Level of Consciousness: 0=Alert LOC to Questions: 0=Both comments correct LOC to commands: 0=Obeys both correctly Visual: 0=No visual loss Facial: 0=Normal Motor Arm - Left: 0=No drift Motor Arm - Right: 0=No drift Motor Leg - Left: 0=No drift Motor Leg - Right: 0=No drift Limb Ataxia: 0=Absent Sensory: 0=Normal Best Language: 0=No aphasia Dysarthia: 0=Normal articulation Extinction & Inattention (Neglect): 0=Normal, no object Severity Of Stroke: 0 = No Stroke Past Medical History Reviewed: Historical Data, Nursing Documentation, Vital Signs Vital Signs: Last Vital Signs Temp 98.6 F 10/10/16 22:14 Pulse 74 10/10/16 22:14 Resp 16 10/10/16 22:14 BP 154/73 H 10/10/16 22:14 Pulse Ox 98 10/10/16 22:14 - Medical History PMH: Arthritis, Back Problems, HTN, Hypercholesterolemia, Hypothyroidism Denies: Anemia, Chronic Kidney Disease - Surgical History Surgical History: (x3) - Family History Family History: States: Unknown Family Hx - Living Arrangements Living Arrangements: With Family - Social History Current smoker - smoking cessation education provided: No Ex-Smoker (has not smoked in the last 12 months): No Alcohol: None Drugs: Denies - Immunization History Hx Tetanus Toxoid Vaccination: No Hx Influenza Vaccination: Yes (current) Hx Pneumococcal Vaccination: No - Home Medications Home Medications: Ambulatory Orders Medication Instructions Recorded Alendronate [Fosamax] 70 mg PO SAT 06/04/15 Calcium Carbonate/Vitamin D3 1 tab PO DAILY 06/04/15 [Calcium 600-Vit D3 200 Tablet] Ergocalciferol (Vitamin D2) 50,000 unit PO QWK 06/04/15 [Vitamin D2] Ketotifen Fumarate [Itchy Eye] 1 drop EACHEYE BID 06/04/15 Meclizine [Antivert] 12.5 mg PO HS 06/04/15 Multivit,Iron,Min 5/Folic Acid 1 tab PO DAILY 06/04/15 [Strovite Forte Caplet] Omeprazole [Prilosec] 40 mg PO DAILY 06/04/15 Simvastatin [Zocor] 40 mg PO HS 06/04/15 Aspirin [Ecotrin] 81 mg PO DAILY 09/23/16 Acetaminophen [Tylenol 325mg tab] 650 mg PO Q6 PRN tab 09/27/16 Cyclobenzaprine [Flexeril] 5 mg PO TID PRN tab 09/27/16 DiphenhydrAMINE [Benadryl] 50 mg IVP Q6 PRN vial 09/27/16 Enalapril Maleate [Vasotec] 20 mg PO DAILY tab 09/27/16 Furosemide [Lasix] 20 mg PO DAILY tab 09/27/16 Lactulose [Enulose] 20 gm PO DAILY PRN 09/27/16 Levothyroxine [Synthroid] 25 mcg PO DAILY@0630 tab 09/27/16 Naloxegol Oxalate [Movantik] 25 mg PO DAILY #30 tablet 09/27/16 Pantoprazole [Protonix EC Tab] 40 mg PO DAILY ect 09/27/16 amLODIPine [Norvasc] 5 mg PO DAILY tab 09/27/16 metFORMIN [glucOPHAGE] 750 mg PO BRK tab 09/27/16 traMADol [Ultram] 50 mg PO BID #60 tab 09/27/16 Enalapril Maleate [Vasotec] 20 mg PO DAILY 10/11/16 Ibuprofen/Famotidine [Duexis 1 tab PO TID 10/11/16 800-26.6 mg Tablet] Icosapent Ethyl [Vascepa] 1 gm PO DAILY 10/11/16 Linaclotide [Linzess] 145 mcg PO DAILY 10/11/16 Tramadol HCl [Ultram] 50 mg PO DAILY 10/11/16 - Allergies Allergies/Adverse Reactions: Allergies Allergy/AdvReac Type Severity Reaction Status Date / Time codeine Allergy SWELLING Verified 10/10/16 22:14 morphine Allergy SWELLING Verified 10/10/16 22:14 tramadol Allergy SWELLING Verified 10/10/16 22:14 Review of Systems ROS Statement: Except As Marked, All Systems Reviewed And Found Negative Neurological: Positive for: Headache, Dizziness, Other ((+) LOC) Physical Exam - Reviewed Nursing Documentation Reviewed: Yes Vital Signs Reviewed: Yes - Physical Exam Appears: Positive for: Non-toxic Head Exam: Positive for: ATRAUMATIC, NORMOCEPHALIC Skin: Positive for: Normal Color, Warm, Dry Eye Exam: Positive for: Normal appearance, EOMI, PERRL ENT: Positive for: Normal ENT Inspection Neck: Positive for: Normal (Patient is in a soft neck brace) Cardiovascular/Chest: Positive for: Regular Rate, Rhythm. Negative for: Murmur Respiratory: Positive for: Normal Breath Sounds. Negative for: Respiratory Distress Gastrointestinal/Abdominal: Positive for: Normal Exam, Soft. Negative for: Tenderness Back: Positive for: Normal Inspection Extremity: Positive for: Normal ROM. Negative for: Deformity, Swelling Neurologic/Psych: Positive for: Alert, Oriented. Negative for: Motor/Sensory Deficits (All extremities have full 5/5 strength. Manager Of Training And Development strength bilaterally intact. Responding to commands.) - Laboratory Results Result Diagrams: 10/10/16 22:47 10/10/16 22:47 - ECG O2 Sat by Pulse Oximetry: 98 (RA) Pulse Ox Interpretation: Normal Medical Decision Making Medical Decision Makin Code stroke called upon pt arrival given onset 745 pm tonight and pt episode of transient slurred speech/headache. Initial impression: r/o stroke, rule out intracranial bleeding Initial plan: * T&S * CT HEAD * EKG * Labs * Hemogloin A1C * Lipid * Trop I * PTT/PT * CXR 2224 Accucheck: [address] HEAD FINDINGS: Brain: Ventricles are normal in size and configuration. There is no midline shift. There is mild prominence of sulci and gyri. There are no intra-axial or extra-axial mass lesions or areas of hemorrhage. There are no abnormal fluid collections. Campos-white differentiation is maintained. Ventricles: See above. Bones: Cranial vault is intact. Soft tissues: unremarkable Sinuses: There is no acute sinusitis. Ears and mastoids: Middle ears and mastoids are unremarkable Orbits: Orbital contents are unremarkable. IMPRESSION: No acute intracranial abnormality 00:20: Labs reviewed - WBC 13.3. Call placed to Neurology solution strategist. 01:00: Spoke with Dr. Randhawa. The patient is Dr. Randhawa's private patient and he requested Dr. Rdoriguez, Neurology, to consult. Call placed for Dr. Rodriguez. 02:05: Dr. Rodriguez is out of town states DR Guerra covering. Spoke with neurology solution strategist dr guerra who will consult on the patient. holding ASA for now due to recent surgery and lack of neurological findings at this time. DR rodriguez states will see pt in the am. pt daughter and pt made aware of plan. Scribe Attestation: Documented by Monica Jo and Jaylin Mcclain acting as a scribe for Cachorro Teague MD. Scribe Attestation: All medical record entries made by the Scribe were at my direction and personally dictated by me. I have reviewed the chart and agree that the record accurately reflects my personal performance of the history, physical exam, medical decision making, and the department course for this patient. I have also personally directed, reviewed, and agree with the discharge instructions and disposition. Disposition - Clinical Impression Clinical Impression: Headache - Patient ED Disposition Is Patient to be Admitted: Yes Discussed With Dr.: franks Counseled Patient/Family Regarding: Studies Performed - Disposition Disposition Time: 23:55 Condition: STABLE rTPA Inclusion/Exclusion - Refusal of Treatment Patient Refused Treatment: No - Inclusion Criteria for Altepase Patient is 18 years or Older: Yes Clinical DX Ischemic Stroke Cause Neurological Deficit: No Time of Onset Established Less Than 270 Mins Before TX Begin: Yes Risk/Benefit Discussed With Patient/Family Member Present: No - Exclusion Criteria for Altepase Uncontrolled Hypertension at Time of TX (SBP>185 or DBP>110): No Active Internal Bleeding: No Known Bleeding Diathesis: No Evidence of an Intracranial Hemorrhage: No Evidence Major Acute Infarct w/ Signs Greater Than 1/3 MCA: No Suspicion of Subarachnoid Bleed on PreTX Eval(CT: neg bleed): No - Warning to TPA With Conditions Following Conditions Weighed Against Anticipated Benefit: No
--- NOTE | 2016-10-10 22:49 | CT ---
EXAM: CT Head Without Intravenous Contrast EXAM DATE/TIME: 10/10/2016 10:21 PM CLINICAL HISTORY: 66 years old, female; Signs and symptoms; Alteration of consciousness and altered mental status/memory loss; Other: Cano's loc; Other: AMS; Additional info: Code stroke TECHNIQUE: Axial computed tomography images of the head/brain without intravenous contrast. All CT scans at this facility use one or more dose reduction techniques, viz.: automated exposure control; ma/kV adjustment per patient size (including targeted exams where dose is matched to indication; i.e. head); or iterative reconstruction technique. Coronal and sagittal reformatted images were created and reviewed. COMPARISON: There are no prior studies for comparison. FINDINGS: Brain: Ventricles are normal in size and configuration. There is no midline shift. There is mild prominence of sulci and gyri. There are no intra-axial or extra-axial mass lesions or areas of hemorrhage. There are no abnormal fluid collections. Campos-white differentiation is maintained. Ventricles: See above. Bones: Cranial vault is intact. Soft tissues: unremarkable Sinuses: There is no acute sinusitis. Ears and mastoids: Middle ears and mastoids are unremarkable Orbits: Orbital contents are unremarkable. IMPRESSION: No acute intracranial abnormality
[2016-10-10 22:53] LABS: BASO # 0.2 K/uL (0.0-0.2); BASO % 1.3 % (0.0-2.0); EOS # 0.3 K/uL (0.0-0.7); HEMATOCRIT 36.6 % (34.0-47.0); LYMPH # 3.6 K/uL (1.0-4.3); LYMPH % 27.4 % (20.0-40.0); MEAN CELL VOLUME 87.3 fl (81.0-99.0); MEAN CORPUSCULAR HGB CONC 33.2 g/dL (33.0-37.0); MEAN PLATELET VOLUME 7.8 fl (7.2-11.7); MONO # 0.9 K/uL (0.0-0.8); MONO % 7.1 % (0.0-10.0); NEUT # 8.3 K/uL (1.8-7.0); NEUT % 62.2 % (50.0-75.0); NRBC % 0.1 % (0.0-0.0); RED CELL DISTRIBUTION WIDTH 13.5 % (11.5-14.5); WHITE BLOOD COUNT 13.3 K/uL (4.8-10.8)
[2016-10-10 22:56] LABS: ALB/GLOB RATIO 1.2 (1.0-2.1); ALKALINE PHOSPHATASE 68 U/L (38-126); ALT/SGPT 33 U/L (9-52); AST/SGOT 27 U/L (14-36); BILIRUBIN,TOTAL 0.6 mg/dl (0.2-1.3); BLOOD UREA NITROGEN 18 mg/dl (7-17); CALCIUM 9.2 mg/dL (8.4-10.2); CARBON DIOXIDE 25 mmol/L (22-30); CHLORIDE 104 mmol/L (98-107); CHOLESTEROL 154 mg/dL (0-199); GFR AFRICAN-AMERICAN > 60; GLUCOSE,RANDOM 113 mg/dL (65-105); SODIUM 138 mmol/l (132-148); TOTAL PROTEIN 7.4 G/DL (6.3-8.2)
[2016-10-10 23:04] LABS: PARTIAL THROMBOPLASTIN TIME 29.1 Seconds (25.6-37.1)
[2016-10-10 23:13] LABS: POTASSIUM 4.5 MMOL/L (3.6-5.0)
[2016-10-11] MEDS: Enoxaparin 40 mg Syringe SC SCH (09:41)
[2016-10-11] MEDS: Levothyroxine 25 MCG TAB PO SCH (09:41)
--- NOTE | 2016-10-11 10:48 | RAD ---
HISTORY: code stroke COMPARISON: Comparison chest dated 06/03/2016 FINDINGS: LUNGS: Poor inspiration with low lung volumes, mild crowded bronchovascular markings and minor bibasilar atelectasis PLEURA: No significant pleural effusion identified, no pneumothorax apparent. CARDIOVASCULAR: Heart size appears enlarged. Aorta is ectatic and uncoiled. OSSEOUS STRUCTURES: No significant abnormalities. VISUALIZED UPPER ABDOMEN: Normal. OTHER FINDINGS: None. IMPRESSION: Poor inspiration with low lung volumes, mild crowded bronchovascular markings and minor bibasilar atelectasis
--- NOTE | 2016-10-11 11:28 | CARD ---
APPROVED REPORT EKG Measurement Heart [id number] <Conclusion> Normal sinus rhythm Normal ECG
--- NOTE | 2016-10-11 13:17 | CP.PCM.HP ---
History of Present Illness - History of Present Illness History of Present Illness: This is a 66 y/o female admitted for intractable headache and near syncope. Claims that for the past few days she has been having dizziness negin in the morning. Since after her cervical laminectomy she had been having difficulty with sleep. Daughter claims that yesterday she was so dizzy that she fainted hence brought to ER. Medical Hx: DM 2 HTN migraine headaches cervical radiculopathy Present on Admission - Present on Admission Any Indicators Present on Admission: No History of DVT/PE: No History of Uncontrolled Diabetes: Yes Urinary Catheter: No Decubitus Ulcer Present: No Review of Systems - Integumentary Additional comments: tenderness inthe posterior aspect of the C spine Past Patient History - Infectious Disease Hx of Infectious Diseases: None - Tetanus Immunizations Tetanus Immunization: Unknown - Past Medical History & Family History Past Medical History?: Yes - Past Social History Alcohol: None Drugs: Denies - CARDIAC Hx Hypercholesterolemia: Yes Hx Hypertension: Yes - PULMONARY Hx Respiratory Disorders: No - NEUROLOGICAL Hx Neurological Disorder: Yes - HEENT Hx HEENT Problems: No - RENAL Hx Chronic Kidney Disease: No - ENDOCRINE/METABOLIC Hx Hypothyroidism: Yes - HEMATOLOGICAL/ONCOLOGICAL Hx Anemia: No - INTEGUMENTARY Hx Dermatological Problems: No - MUSCULOSKELETAL/RHEUMATOLOGICAL Hx Arthritis: Yes - GASTROINTESTINAL Hx Gastrointestinal Disorders: No Other/Comment: GASTRIC REFLUX - GENITOURINARY/GYNECOLOGICAL Hx Genitourinary Disorders: No - PSYCHIATRIC Hx Psychophysiologic Disorder: No Hx Substance Use: No - SURGICAL HISTORY Hx Surgeries: Yes Other/Comment: BACK SURGERY-2016;C-SECTIONX3; ORAL SURGERY-LEFT FACE SURGERY. LAMINECTOMY - ANESTHESIA Hx Anesthesia: Yes Hx Anesthesia Reactions: Yes (FEELS VERY SICK) Hx Malignant Hyperthermia: No Meds Allergies/Adverse Reactions: Allergies Allergy/AdvReac Type Severity Reaction Status Date / Time codeine Allergy SWELLING Verified 10/10/16 22:14 morphine Allergy SWELLING Verified 10/10/16 22:14 Physical Exam - Head Exam Head Exam: NORMAL INSPECTION - Eye Exam Eye Exam: Normal appearance - ENT Exam ENT Exam: Mucous Membranes Moist - Respiratory Exam Respiratory Exam: Clear to Auscultation Bilateral - Cardiovascular Exam Cardiovascular Exam: REGULAR RHYTHM - GI/Abdominal Exam GI & Abdominal Exam: Normal Bowel Sounds - Neurological Exam Neurological exam: CN II-XII Intact, Oriented x3 - Psychiatric Exam Psychiatric exam: Normal Mood Results - Vital Signs Recent Vital Signs: Last Vital Signs Temp 98.1 F 10/11/16 12:00 Pulse 74 10/11/16 12:00 Resp 18 10/11/16 12:00 BP 126/79 10/11/16 12:00 Pulse Ox 97 10/11/16 12:00 - Labs Result Diagrams: 10/10/16 22:47 10/10/16 22:47 Labs: Laboratory Results - last 24 hr 10/11/16 06:30 POC Glucose (mg/dL) 104 Assessment & Plan (1) Near syncope Status: Acute (2) Headache Status: Acute (3) Diabetes mellitus type 2 in nonobese Status: Acute (4) Hypertension Status: Acute (5) Dizziness Status: Acute - Assessment and Plan (Free Text) Plan: start telemetry neuro check cont meds hydrate cyclobenzaprine
[2016-10-11 16:18] LABS: RBC URINE 1 /hpf (0-3); URINE BILIRUBIN NEGATIVE (NEGATIVE); URINE BLOOD NEGATIVE (NEGATIVE); URINE COLOR YELLOW (YELLOW); URINE GLUCOSE (UA) NEG (Normal); URINE KETONE NEGATIVE (NEGATIVE); URINE LEUKOCYTE ESTERASE NEG Leu/uL (Negative); URINE PROTEIN NEGATIVE (NEGATIVE); URINE UROBILINOGEN 0.2-1.0 mg/dL (0.2-1.0); WBC URINE 2 /hpf (0-5)
--- NOTE | 2016-10-11 17:55 | CP.PCM.CON ---
History of Present Illness - History of Present Illness History of Present Illness: Mrs. Eason is a 66-year-old woman with a past medical history of cervical laminectomy and headaches/neck pain that are right sided and severe. Last night the pain was unbearable and the patient presented to the ED. She was given ketorolac and cyclobenzaprine and today she feels better. The headache is gone. There was a report of syncopal episode, but the patient denied this. There were no acute events overnight. Review of Systems - Review of Systems All systems: reviewed and no additional remarkable complaints except Past Patient History - Infectious Disease Hx of Infectious Diseases: None - Tetanus Immunizations Tetanus Immunization: Unknown - Past Medical History & Family History Past Medical History?: Yes - Past Social History Alcohol: None Drugs: Denies - CARDIAC Hx Hypercholesterolemia: Yes Hx Hypertension: Yes - PULMONARY Hx Respiratory Disorders: No - NEUROLOGICAL Hx Neurological Disorder: Yes - HEENT Hx HEENT Problems: No - RENAL Hx Chronic Kidney Disease: No - ENDOCRINE/METABOLIC Hx Hypothyroidism: Yes - HEMATOLOGICAL/ONCOLOGICAL Hx Anemia: No - INTEGUMENTARY Hx Dermatological Problems: No - MUSCULOSKELETAL/RHEUMATOLOGICAL Hx Arthritis: Yes - GASTROINTESTINAL Hx Gastrointestinal Disorders: No Other/Comment: GASTRIC REFLUX - GENITOURINARY/GYNECOLOGICAL Hx Genitourinary Disorders: No - PSYCHIATRIC Hx Psychophysiologic Disorder: No Hx Substance Use: No - SURGICAL HISTORY Hx Surgeries: Yes Other/Comment: BACK SURGERY-2016;C-SECTIONX3; ORAL SURGERY-LEFT FACE SURGERY. LAMINECTOMY - ANESTHESIA Hx Anesthesia: Yes Hx Anesthesia Reactions: Yes (FEELS VERY SICK) Hx Malignant Hyperthermia: No Meds Allergies/Adverse Reactions: Allergies Allergy/AdvReac Type Severity Reaction Status Date / Time codeine Allergy SWELLING Verified 10/10/16 22:14 morphine Allergy SWELLING Verified 10/10/16 22:14 - Medications Medications: Current Medications Aspirin (Ecotrin) 81 mg PO DAILY [facility] Last Admin: 10/11/16 09:40 Dose: 81 mg Cyclobenzaprine HCl (Flexeril) 10 mg PO HS [facility] Enoxaparin Sodium (Lovenox) 40 mg SC DAILY [facility] PRN Reason: Protocol Last Admin: 10/11/16 09:41 Dose: 40 mg Levothyroxine Sodium (Synthroid) 25 mcg PO DAILY@0630 [facility] Last Admin: 10/11/16 09:41 Dose: 25 mcg Tramadol HCl (Ultram) 50 mg PO BID PRN PRN Reason: Pain, moderate (4-7) Physical Exam - Constitutional Appears: Well - Head Exam Head Exam: ATRAUMATIC, NORMAL INSPECTION, NORMOCEPHALIC - Eye Exam Eye Exam: EOMI, Normal appearance, PERRL - ENT Exam ENT Exam: Mucous Membranes Moist, Normal Exam - Neck Exam Neck exam: Positive for: Normal Inspection - Respiratory Exam Respiratory Exam: Clear to Auscultation Bilateral, NORMAL BREATHING PATTERN - Cardiovascular Exam Cardiovascular Exam: REGULAR RHYTHM, +S1, +S2 - GI/Abdominal Exam GI & Abdominal Exam: Normal Bowel Sounds, Soft. absent: Tenderness - Rectal Exam Rectal Exam: Deferred - Extremities Exam Extremities exam: Positive for: normal inspection - Back Exam Back exam: NORMAL INSPECTION - Neurological Exam Neurological exam: Alert, CN II-XII Intact, Normal Gait, Oriented x3, Reflexes Normal - Psychiatric Exam Psychiatric exam: Normal Affect, Normal Mood - Skin Skin Exam: Dry, Intact, Normal Color, Warm Results - Vital Signs Recent Vital Signs: Last Vital Signs Temp 98.3 F 10/11/16 15:42 Pulse 76 10/11/16 15:42 Resp 20 10/11/16 15:42 BP 112/70 10/11/16 15:42 Pulse Ox 97 10/11/16 15:42 - Labs Result Diagrams: 10/10/16 22:47 10/10/16 22:47 Labs: Laboratory Results - last 24 hr 10/11/16 10/11/16 06:30 15:55 POC Glucose (mg/dL) 104 Urine Color Yellow Urine Clarity Clear Urine pH 7.0 Ur Specific [place] 1.024 Urine Protein Negative Urine Glucose (UA) Neg Urine Ketones Negative Urine Blood Negative Urine Nitrate Negative Urine Bilirubin Negative Urine Urobilinogen 0.2-1.0 Ur Leukocyte Esterase Neg Urine RBC (Auto) 1 Urine Microscopic WBC 2 Ur Squamous Epith Cells < 1 - Imaging and Cardiology CT scan - head Status: Image reviewed by me, Report reviewed by me (Normal) Assessment & Plan (1) Headache Assessment and Plan: Likely a tension type headache due to cervical radiculopathy and musculoskeletal strain that responded to cyclobenzaprine and ketorolac. The patient should be seen by pain management as an outpatient. I would like to start her on Magnesium Oxide 400 mg BID for prevention of the headaches. No further recommendations at this time. Status: Acute Priority: High
[2016-10-11] MEDS: Magnesium Oxide 400 mg Tab UD PO SCH (21:08)
[2016-10-12] MEDS: Levothyroxine 25 MCG TAB PO SCH (06:05)
[2016-10-12 08:46] VITALS: BP 117/80; RESP 20; TEMP 98.2; O2SAT 98
[2016-10-12] MEDS: Enoxaparin 40 mg Syringe SC SCH (09:07)
[2016-10-12] MEDS: Magnesium Oxide 400 mg Tab UD PO SCH (09:07)
[2016-10-12 10:42] LABS: BASO # 0.1 K/uL (0.0-0.2); BASO % 0.9 % (0.0-2.0); EOS # 0.2 K/uL (0.0-0.7); EOS % 2.1 % (0.0-4.0); HEMATOCRIT 37.1 % (34.0-47.0); LYMPH # 2.7 K/uL (1.0-4.3); LYMPH % 25.5 % (20.0-40.0); MEAN CELL VOLUME 87.3 fl (81.0-99.0); MEAN CORPUSCULAR HEMOGLOBIN 28.3 pg (27.0-31.0); MEAN CORPUSCULAR HGB CONC 32.4 g/dL (33.0-37.0); MEAN PLATELET VOLUME 7.6 fl (7.2-11.7); MONO # 0.4 K/uL (0.0-0.8); MONO % 4.2 % (0.0-10.0); NEUT # 7.2 K/uL (1.8-7.0); NEUT % 67.3 % (50.0-75.0); RED CELL DISTRIBUTION WIDTH 13.5 % (11.5-14.5); WHITE BLOOD COUNT 10.8 K/uL (4.8-10.8)
[2016-10-12 10:43] VITALS: PULSE 68
--- NOTE | 2016-10-12 10:47 | CP.PCM.DIS ---
Provider - Provider Date of Admission: 10/11/16 01:05 Attending physician: Rahat Randhawa MD Time Spent in preparation of Discharge (in minutes): 30 Diagnosis - Discharge Diagnosis (1) Near syncope Status: Acute (2) Headache Status: Acute Priority: High (3) Diabetes mellitus type 2 in nonobese Status: Acute (4) Hypertension Status: Acute (5) Dizziness Status: Acute Hospital Course - Lab Results Lab Results: Most Recent Lab Values WBC 13.3 K/uL (4.8-10.8) H 10/10/16 22:47 RBC 4.19 Mil/uL (3.80-5.20) 10/10/16 22:47 Hgb 12.1 g/dL (12.0-16.0) 10/10/16 22:47 Hct 36.6 % (34.0-47.0) 10/10/16 22:47 MCV 87.3 fl (81.0-99.0) 10/10/16 22:47 MCH 29.0 pg (27.0-31.0) 10/10/16 22:47 MCHC 33.2 g/dL (33.0-37.0) 10/10/16 22:47 RDW 13.5 % (11.5-14.5) 10/10/16 22:47 Plt Count 363 K/uL (130-400) D 10/10/16 22:47 MPV 7.8 fl (7.2-11.7) 10/10/16 22:47 Neut % (Auto) 62.2 % (50.0-75.0) 10/10/16 22:47 Lymph % (Auto) 27.4 % (20.0-40.0) 10/10/16 22:47 [place] % (Auto) 7.1 % (0.0-10.0) 10/10/16 22:47 Eos % (Auto) 2.0 % (0.0-4.0) 10/10/16 22:47 Baso % (Auto) 1.3 % (0.0-2.0) 10/10/16 22:47 Neut # 8.3 K/uL (1.8-7.0) H 10/10/16 22:47 Lymph # 3.6 K/uL (1.0-4.3) 10/10/16 22:47 [place] # 0.9 K/uL (0.0-0.8) H 10/10/16 22:47 Eos # 0.3 K/uL (0.0-0.7) 10/10/16 22:47 Baso # 0.2 K/uL (0.0-0.2) 10/10/16 22:47 PT 13.1 Seconds (9.8-13.1) 10/10/16 22:47 INR 1.3 (0.9-1.2) H 10/10/16 22:47 APTT 29.1 Seconds (25.6-37.1) 10/10/16 22:47 Sodium 138 mmol/l (132-148) 10/10/16 22:47 Potassium 4.5 MMOL/L (3.6-5.0) 10/10/16 22:47 Chloride 104 mmol/L (98-107) 10/10/16 22:47 Carbon Dioxide 25 mmol/L (22-30) 10/10/16 22:47 Anion Gap 14 (10-20) 10/10/16 22:47 BUN 18 mg/dl (7-17) H 10/10/16 22:47 Creatinine 1.0 mg/dL (0.7-1.2) 10/10/16 22:47 Est GFR ( Amer) > 60 10/10/16 22:47 Est GFR (Non-Af Amer) 56 10/10/16 22:47 POC Glucose (mg/dL) 86 mg/dL (65-110) 10/12/16 05:37 Random Glucose 113 mg/dL (65-105) H 10/10/16 22:47 Hemoglobin A1c 6.1 % (4.2-6.5) 10/10/16 22:47 Calcium 9.2 mg/dL (8.4-10.2) 10/10/16 22:47 Total Bilirubin 0.6 mg/dl (0.2-1.3) 10/10/16 22:47 AST 27 U/L (14-36) 10/10/16 22:47 ALT 33 U/L (9-52) 10/10/16 22:47 Alkaline Phosphatase 68 U/L (38-126) 10/10/16 22:47 Troponin I < 0.0120 ng/mL (0.00-0.120) 10/10/16 22:47 Total Protein 7.4 G/DL (6.3-8.2) 10/10/16 22:47 Albumin 4.1 g/dL (3.5-5.0) 10/10/16 22:47 Globulin 3.3 gm/dL (2.2-3.9) 10/10/16 22:47 Albumin/Globulin Ratio 1.2 (1.0-2.1) 10/10/16 22:47 Triglycerides 163 mg/DL (0-149) H 10/10/16 22:47 Cholesterol 154 mg/dL (0-199) 10/10/16 22:47 LDL Cholesterol Direct 78 mg/dL (0-129) 10/10/16 22:47 HDL Cholesterol 42 MG/DL (30-70) 10/10/16 22:47 Urine Color Yellow (YELLOW) 10/11/16 15:55 Urine Clarity Clear (Clear) 10/11/16 15:55 Urine pH 7.0 (5.0-8.0) 10/11/16 15:55 Ur Specific [place] 1.024 (1.003-1.030) 10/11/16 15:55 Urine Protein Negative mg/dL (NEGATIVE) 10/11/16 15:55 Urine Glucose (UA) Neg mg/dL (Normal) 10/11/16 15:55 Urine Ketones Negative mg/dL (NEGATIVE) 10/11/16 15:55 Urine Blood Negative (NEGATIVE) 10/11/16 15:55 Urine Nitrate Negative (NEGATIVE) 10/11/16 15:55 Urine Bilirubin Negative (NEGATIVE) 10/11/16 15:55 Urine Urobilinogen 0.2-1.0 mg/dL (0.2-1.0) 10/11/16 15:55 Ur Leukocyte Esterase Neg [place]/uL (Negative) 10/11/16 15:55 Urine RBC (Auto) 1 /hpf (0-3) 10/11/16 15:55 Urine Microscopic WBC 2 /hpf (0-5) 10/11/16 15:55 Ur Squamous Epith Cells < 1 /hpf (0-5) 10/11/16 15:55 Blood Type O POSITIVE 10/10/16 23:08 Antibody Screen Negative 10/10/16 23:08 BBK History Checked Patient has bt 10/10/16 23:08 - Hospital Course Hospital Course: This is a 66 y/o female admitted for near syncope after having been dizzy for few days. Sh had a recent cervical laminectomy and claims that she has not been getting good sleep due to her required position in sleep. She was with her daughter when she almost fainted hence 911 was called. She was kept in telemetry du to unstable vitals and noted elevated WBC, She was started on ambulation with assistance and did very well She was started on NSAID's cyclobenzaprine and did very well. She was discharged in stable condition and advised follow up in 1 week. Discharge Exam - Head Exam Head Exam: ATRAUMATIC, NORMAL INSPECTION, NORMOCEPHALIC - Eye Exam Eye Exam: Normal appearance - Respiratory Exam Respiratory Exam: NORMAL BREATHING PATTERN - Cardiovascular Exam Cardiovascular Exam: REGULAR RHYTHM - GI/Abdominal Exam GI & Abdominal Exam: Normal Bowel Sounds - Neurological Exam Neurological exam: CN II-XII Intact, Oriented x3 - Psychiatric Exam Psychiatric exam: Normal Mood Discharge Plan - Follow Up Plan Condition: STABLE Disposition: HOME/ ROUTINE Additional Instructions: Rx given advised follow up in 1 week.
== END 2016-10-12 12:25 | disposition home or self-care (01) | DRG 312 ==
LOC: H.ER 21:57 → H.ERHOLD 10-11 01:05 → H.TEL 10-11 03:11
PROVIDERS: ADMIT Family Medicine; ATTEND Family Medicine
DX: R55 Syncope and collapse (principal); I10 Essential (primary) hypertension; E11.9 Type 2 diabetes mellitus without complications; R51 Headache; R42 Dizziness and giddiness; Z88.6 Allergy status to analgesic agent; Z88.5 Allergy status to narcotic agent; M54.12 Radiculopathy, cervical region; E03.9 Hypothyroidism, unspecified; E78.00 Pure hypercholesterolemia, unspecified; M19.90 Unspecified osteoarthritis, unspecified site